=== PATIENT | female | born 1960 | race Hispanic/Latino ===

== ENCOUNTER 2025-02-06 11:41 | Emergency (ER) | payer BC ==
[~2025-02-06] VITALS: Ht 152.4 cm; Wt 81.6 kg
--- NOTE | 2025-02-06 11:49 | ERN ---
ED Note History of Present Illness Stated Complaint: FALL Chief Complaint: Mechanical Fall Time Seen by MD: 11:44 Dictation: PATIENT IS A 64-YEAR-OLD FEMALE COMING IN VIA EMS WITH COMPLAINTS OF FALLING OFF OF A SMALL STOOL WHILE WORKING ON HER [employer]. SHE STATES SHE LOST HER BALANCE AND FELL BACKWARDS. STRUCK HER OCCIPUT HEAD. SHE STATES SHE HAD LOSS OF CONSCIOUSNESS. NO NAUSEA VOMITING SHE WAS AMBULATORY AT THE SCENE WHEN EMS ARRIVED. HE IS COMPLAINING OF A OCCIPITAL HEADACHE/MILD LUMBAR AND THORACIC PAIN WITHOUT MIDLINE SPINE PAIN. MAURITANIAN C-SPINE SCORE IS NEGATIVE. PATIEN MOVING ALL EXTREMITIES 5/5 BILATERALLY. NO MIDLINE SPINE PAIN OR STEP-OFFS. C-COLLAR REMOVED BY EMS ON TRIAGE, NEUROVASCULAR CMS INTACT TO ALL EXTREMITIES POST REMOVAL. Allergies: Coded Allergies: No Known Drug Allergies (Unverified Allergy, Unknown, 02/06/25) Past Medical History History: Not Applicable RN Note Reviewed/Agreed w/PFSH: Yes Review of System Dictation CONSTITUTIONAL: NEGATIVE EXCEPT FOR HPI HEAD/FACE: NEGATIVE EXCEPT FOR HPI OCCIPITAL HEADACHE EENT: NEGATIVE EXCEPT FOR HPI RESPIRATORY: NEGATIVE EXCEPT FOR HPI GASTROINTESTINAL/ABDOMINAL: NEGATIVE EXCEPT FOR HPI GENITOURINARY: NEGATIVE EXCEPT FOR HPI MUSCULOSKELETAL: NEGATIVE EXCEPT FOR HPI DIFFUSE POSTERIOR NECK AND LUMBAR PAIN INTEGUMENTARY: NEGATIVE EXCEPT FOR HPI NEUROLOGICAL/PSYCH: NEGATIVE EXCEPT FOR HPI HEMATOLOGIC/LYMPHATIC: NEGATIVE EXCEPT FOR HPI ALL SYSTEMS NEGATIVE, EXCEPT NOTED ABOVE. 13 POINT REVIEW OF SYSTEMS ASSESSED AND ALL NEGATIVE EXCEPT FOR ABOVE. Initial Vital Sign VS Vital Signs Date Time Temp Pulse Resp B/P (MAP) Pulse Ox O2 Delivery O2 Flow Rate FiO2 02/06/25 11:42 97.9 77 17 132/92 98 Room Air 0 02/06/25 11:42 21 Physical Exam Dictation VITAL SIGNS REVIEWED GENERAL APPEARANCE: ALERT, ORIENTED X 3, MODERATE ACUTE DISTRESS, WELL DEV ELOPED, NOURISHED. HEAD AND FACE: MILD DIFFUSE OCCIPITAL TENDERNESS. NO HEMATOMA NO NOLAND OR RACCOON SIGN EYES: PERRL, PINK CONJUNCTIVAS, EYELID NO TRAUMA, ANTERIOR CHAMBER WITH ARCUS SENILIS. EARS: PINNAS INTACT AND NO SIGNS OF TRAUMA OR ERYTHEMA EAR CANALS CLEAR AND NO DISCHARGE TM NO ERYTHEMA NO HEMOTYMPANUM NOSE: NO DISCHARGE, NO BLEEDING. OROPHARYNX: MOUTH NORMAL, TONGUE PINK, PHARYNX , NO THYROMEGALY, NO MASSES, NO JVD, NO BRUITS BREAST:DEFERRED CHEST:NO TENDERNESS, NO CREPITUS, NO PARADOXICAL MOVEMENT, NO RETRACTIONS LUNGS:CLEAR, WELL-VENTILATED, SYMMETRIC, NO RALES, NO WHEEZING, NO RHONCHI, NO STRIDOR, GOOD BREATH SOUNDS BILATERALLY HEART: REGULAR RATE, REGULAR RHYTHM, NO MURMUR, NO GALLOPS VASCULAR: NO PERIPHERAL EDEMA, ABDOMEN: SOFT, POSITIVE BOWEL SOUNDS, NONDISTENDED, NO GUARDING, NONTENDER, NO REBOUND, NO MASSES NO HEPATOMEGALY, NO SPLENOMEGALY, NO PATRICIA'S SIGN, NO HERNIAS. RECTAL: DEFERRED GENITAL: DEFERRED NEUROLOGICAL: NORMAL SPEECH, MOTOR FUNCTION INTACT, SENSORY FUNCTION INTACT MUSCULOSKELETAL: DIFFUSE POSTERIOR CERVICAL AND LUMBAR TENDERNESS. NO MIDLINE SPINE PAIN OR STEP-OFFS. MOVES ALL EXTREMITIES 5/5 BILATERALLY. NO HIP PAIN NO SHORTENING OR ROTATION OF THE LOWER EXTREMITIES EXTREMITIES: NONTENDER, FULL RANGE OF MOTION SKIN: COLOR PINK, DRY, NO TURGOR, NO RASH, NO LACERATIONS, NO ABRASIONS, NO CONTUSIONS. LYMPHATIC: DEFERRED Results (Laboratory/Radiology) Laboratory/Radiology 1600/CT HEAD NEGATIVE LUMBAR SPINE NEGATIVE DEGENERATIVE CHANGES ONLY CERVICAL SPINE DEGENERATIVE CHANGES ONLY Labs Reviewed?: Yes ED Course ED Course Orders Procedure Category Date Status Time Ct Head/Brain W/O CT 02/06/25 Taken Contrast 11:45 Cerv Spine 2-3vws RAD 02/06/25 Taken 11:45 Lumbar Spine 2-3vws RAD 02/06/25 Taken 11:45 Acetaminophen With PHA 02/06/25 Complete Codeine (Tylenol-Code 12:00 Apply Ice Pack To: CPOE 02/06/25 Transmitted (Er) 11:45 Current Medications Medications (Trade) Dose Ordered Sig/David Route PRN Reason Start Time Stop Time Status Last Admin Dose Admin Acetaminophen/ Codeine Phosphate (TYLenol-coDEINE TAB) 2 tab ONCE ONCE PO 02/06/25 12:00 02/06/25 12:01 DC 02/06/25 12:12 Vital Signs Date Time Temp Pulse Resp B/P (MAP) Pulse Ox O2 Delivery O2 Flow Rate FiO2 02/06/25 13:07 97.5 67 16 124/63 98 Room Air* 0 02/06/25 11:42 97.5 77 17 132/92 99 Room Air* 0 02/06/25 11:42 97.9 77 17 132/92 98 Room Air 0 1445/SPOKE WITH LIANNE IN CAT SCAN. HE SAID ALL CT READINGS ARE BEING DONE BY [facility] AND [place]. I ADVISED HIM WE DID NOT HAVE A CT HEAD SCAN REPORT YET. HE SAID HE WOULD CALL [facility] NOW.1605/ 1605/PATIENT NEUROLOGICALLY INTACT SPEECH IS CLEAR. PAIN IS 8/10 I WE WILL MEDICATE AFTER NOW AND WE HAVE CT RESULTS OF THE HEAD PATIENT ADVISED TO FOLLOW UP WITH HER PRIMARY CARE DOCTOR IN [facility] NEXT 1-2 DAYS Medical Decision Making MDM MEDICAL DISCHARGE MAKING BASED ON X-RAYS OF CERVICAL AND LUMBAR SPINE WITH HEAD CT. ALL IMAGING NEVER NEGATIVE OTHER THAN DEGENERATIVE CHANGES PATIENT DISCHARGED HOME NEUROLOGICALLY INTACT TOLD TO SEE HER PRIMARY CARE DOCTOR IN THE NEXT ONE TWO DAYS FOR FOLLOW UP AND MANAGEMENT DX & DISP Disposition: Discharge Departure Impression: Primary Impression: Acute myofascial strain of lumbar region Additional Impressions: Acute cervical myofascial strain, Contusion of scalp, initial encounter, Fall Condition: Stable Scripts Cyclobenzaprine HCl (Cyclobenzaprine HCl) 10 Mg Tablet 1 TAB PO TID for muscle spasms for 10 Days, #30 TAB 0 Refills Prov: SABIHA AGARWAL [facility] 02/06/25 Ibuprofen (Ibuprofen 800 mg Tab) 800 Mg Tab 800 MG PO Q8H PRN for fever or pain, #30 TAB 0 Refills Prov: SABIHA AGARWAL [facility] 02/06/25 Additional Instructions: FOLLOW-UP WITH PRIMARY CARE PROVIDER IN 1 TO 2 DAYS. TAKE MEDICATIONS DIRECTED HERE IN THE EMERGENCY ROOM. OKAY TO CONTINUE HOME MEDICATIONS UNLESS OTHERWISE DISCUSSED DURING YOUR VISIT IN THE EMERGENCY ROOM TODAY. RETURN TO YOUR NEAREST EMERGENCY ROOM IF SYMPTOMS WORSEN OR IF THERE IS NO IMPROVEMENT. CALL 911 IF YOU NEED IMMEDIATE ASSISTANCE. TAKE TYLENOL OR MOTRIN OVE [id number] NEEDED AND IF NO CONTRAINDICATIONS ARE PRESENT. INCREASE ORAL HYDRATION. A WOUND CULTURE OR URINE CULTURE WAS ORDERED HERE IN THE EMERGENCY ROOM DEPARTMENT PLEASE FOLLOW-UP WITH PRIMARY CARE PROVIDER AND ADVISE THEM TO GET REPEAT PORTS FROM OUR FACILITY. IF YOU HAD ANY CYNDEE WRAP/SPLINTS THAT WERE APPLIED HERE, PLEASE DO NOT REMOVE THEM UNTIL YOU SEE YOUR PRIMARY CARE OR SPECIALTY. TAKE IBUPROFEN AND FLEXERIL EVERY 8 HOURS WITH FOOD FOR THE NEXT TWO DAYS. COOL COMPRESSES TO PAIN THREE TO 4 TIMES A DAY. SEE YOUR PRIMARY CARE DOCTOR FOR FOLLOW UP IN NEXT 1-2 DAYS. RETURN TO THE EMERGENCY ROOM IMMEDIATELY IF ANY ACUTE CHANGES FROM THE HEAD INJURY INFORMATION SHEET Referrals: SELF,REFERRAL (PCP) Time of Disposition: 16:05 I have reviewed the case, and I agree with, Diagnosis and Plan SABIHA AGARWAL CLERK [employer]ATIONS Feb 06, 2025 11:49
[2025-02-06] MEDS ORDERED: CYCL-309 PO (16:06)
[2025-02-06] MEDS ORDERED: IBUP-2077 PO (16:06)
[2025-02-06] MEDS: HYDROcodone/APAP 5/325 1 TAB TABLET PO ONE (16:39)
[2025-02-06] MEDS: CYCLOBENZAPRINE HCL 10 MG TABLET PO ONE (16:39)
[2025-02-06 16:43] VITALS: BP 118/59; PULSE 68; RESP 16; TEMP 97.6; O2SAT 98
--- NOTE | 2025-02-08 10:06 | HMCIMG ---
EXAM: CR Cervical spine, 4 View. CLINICAL HISTORY: BACKWARDS AND DIFFUSE LATERAL CERVICAL SPINE PAIN COMPARISON: None provided. FINDINGS: BONES: No acute osseous findings. DISCS/DEGENERATIVE CHANGES: Multilevel degenerative disc disease with disc height loss. SOFT TISSUES: No prevertebral soft tissue swelling. The visualized lung apices are clear. IMPRESSION: 1. Multilevel degenerative disc disease with disc height loss. 2. No acute osseous findings. /[place]
--- NOTE | 2025-02-08 10:06 | HMCIMG ---
EXAM: CT Head Without IV contrast. CLINICAL HISTORY: FELL BACKWARDS AND HIT OCCIPUT. POSITIVE LOC TECHNIQUE: Axial computed tomography images of the head/brain without intravenous contrast. COMPARISON: None provided. FINDINGS: BRAIN: No evidence of acute hemorrhage. No mass lesion. No CT evidence for acute territorial infarct. No midline shift or extra-axial collections. VENTRICLES: No hydrocephalus. ORBITS: The orbits are unremarkable. SINUSES AND MASTOIDS: The paranasal sinuses and mastoid air cells are clear. BONES: No fracture. SOFT TISSUES: Unremarkable. IMPRESSION: No acute intracranial abnormality. /[place]
--- NOTE | 2025-02-08 10:07 | HMCIMG ---
EXAM: CR Lumbar Spine, 2 View. CLINICAL HISTORY: FALL BACKWARDS AND LANDED ON BACK. LUMBAR PAIN COMPARISON: None provided. FINDINGS: BONES: No acute fracture or aggressive appearing osseous lesion. ALIGNMENT: Alignment is within normal limits. No significant scoliosis. DISCS / DEGENERATIVE CHANGES: Multilevel degenerative disc disease with disc height loss. There is mild grade 1 anterolisthesis of L4 and L5. SOFT TISSUES: The soft tissues are unremarkable. IMPRESSION: No acute osseous findings. Multilevel degenerative disc disease with disc height loss. There is mild grade 1 anterolisthesis of L4 and L5. /[place]
== END 2025-02-06 17:04 | disposition home or self-care (01) ==
LOC: EDH 11:41
DX: S39.012A Strain of muscle, fascia and tendon of lower back, initial encounter (principal); S16.1XXA Strain of muscle, fascia and tendon at neck level, initial encounter; S00.03XA Contusion of scalp, initial encounter; W18.39XA Other fall on same level, initial encounter; Y93.89 Activity, other specified; Y92.89 Other specified places as the place of occurrence of the external cause; Y99.8 Other external cause status
CPT/HCPCS: 99284; 70450; 72040; 72100; 96372; J1885